=== PATIENT | female | born 1975 | race Caucasian/White ===

== ENCOUNTER 2025-02-19 10:00 | Emergency (ER) | payer BC ==
[2025-02-19] MEDS ORDERED: Sodium Chloride 0.9% 10 ML Syringe FLUSH PRN (10:36)
[2025-02-19 11:03] LABS: BASOPHILS ABSOLUTE AUTO 0.03 10^3/uL (0.00-0.10); BASOPHILS PERCENT AUTO 0.5 % (0.0-1.0); EOSINOPHILS ABSOLUTE AUTO 0.11 10^3/uL (0.10-0.30); EOSINOPHILS PERCENT AUTO 1.8 % (1.0-3.0); IMMATURE GRAN ABSOLUTE AUTO 0.01 10^3/uL (0.00-0.04); IMMATURE GRAN PERCENT AUTO 0.2 % (0.0-0.4); LYMPHOCYTES ABSOLUTE AUTO 1.98 10^3/uL (1.00-4.00); LYMPHOCYTES PERCENT AUTO 31.9 % (20.0-40.0); MEAN PLATELET VOLUME 9.4 fL (7.4-10.4); MONOCYTES ABSOLUTE AUTO 0.47 10^3/uL (0.10-0.80); MONOCYTES PERCENT AUTO 7.6 % (2.0-8.0); NEUTROPHILS ABSOLUTE AUTO 3.61 10^3/uL (2.50-7.00); NEUTROPHILS PERCENT AUTO 58.0 % (50.0-70.0); PLATELET COUNT,PLT 222 10^3/uL (150-400); RED BLOOD CELL COUNT 5.09 10^6/uL (3.80-5.50); RED CELL DISTRIBUTION WIDTH 13.9 % (11.5-14.5); WHITE BLOOD CELL COUNT,WBC 6.21 10^3/uL (5.00-10.00)
[2025-02-19 11:18] LABS: ALANINE AMINOTRANSFERASE,ALT 30.0 U/L (14-63); ASPARTATE AMNIOTRANSFERASE,AST 19.0 U/L (15-37); BILIRUBIN TOTAL 0.4 mg/dL (0.2-1.0); BLOOD UREA NITROGEN,BUN 8.0 mg/dL (7-18); CARBON DIOXIDE,CO2 30.3 mmol/L (21.0-32.0); CHLORIDE,CL 103.0 mmol/L (98-107); CREATININE 0.78 mg/dL (0.51-1.17); EST CRCL DRUG DOSING (CG) 69.79 mL/min; ESTIMATED GFR 91.0 mL/min (>=60); GLUCOSE RANDOM 127.0 mg/dL (70-140); POTASSIUM,K 4.5 mmol/L (3.5-5.1); PROTEIN TOTAL,TP 7.2 g/dL (6.4-8.2); SODIUM,NA 141.0 mmol/L (136-145)
== END 2025-02-19 11:48 | disposition home or self-care (01) ==
LOC: KA.ED 10:02
DX: R55 Syncope and collapse (principal); R10.9 Unspecified abdominal pain; Z88.5 Allergy status to narcotic agent
CPT/HCPCS: 36415; 80053; 85025; 96360; 99284-25; J7030